=== PATIENT | female | born 1970 | race Caucasian/White ===

== ENCOUNTER 2019-07-08 00:10 | Emergency (ER) | payer BC, OTHER ==
[2019-07-08] MEDS ORDERED: Bacitracin Oint 1 GM U/D Packet TOP ONE (00:18)
[2019-07-08] MEDS ORDERED: Lidocaine 1% with EPINEPHrine 1:100,000 20 ML MDV INJECT ONE (00:18)
--- NOTE | 2019-07-08 00:56 | EDM.PDOC ---
ED HPI GENERAL MEDICAL PROBLEM - General Stated Complaint: SLIPPED AND HIT HEAD Time Seen by Provider: 07/08/19 00:17 Source of Information: Reports: Patient History Limitations: Reports: No Limitations - History of Present Illness INITIAL COMMENTS - FREE TEXT/NARRATIVE: ED ambulatory, states slipped fell hit head on bench, laceration to forehead. Tetnus current. no loss of consciousness. No blood thinners, , No aspirin intake. No dizziness or balance problems. 3cm gaping laceration to mid forehead. Deneis neck or back pain, No other injury - Related Data Allergies Allergy/AdvReac Type Severity Reaction Status Date / Time No Known Allergies Allergy Verified 07/08/19 00:27 Home Meds: Home Meds Ascorbic Acid [Vitamin C] 1,000 mg PO DAILY 07/08/19 [History] Iron 1 tab PO DAILY 07/08/19 [History] ED ROS GENERAL - Review of Systems Review Of Systems: Comprehensive ROS is negative, except as noted in HPI. ED EXAM, GENERAL - Physical Exam Exam: See Below Exam Limited By: No Limitations General Appearance: Alert, Mild Distress Eye Exam: Bilateral Eye: EOMI, PERRL (4) Ear Exam: Bilateral Ear: TM normal Nose: Normal Inspection Throat/Mouth: Normal Inspection, Normal Oropharynx Head: Normocephalic, Other (forehead laceration) Neck: Normal Inspection, Full Range of Motion. No: Tender Lateral, Tender Midline Respiratory/Chest: No Respiratory Distress, Lungs Clear, Normal Breath Sounds Cardiovascular: Normal Peripheral Pulses, Regular Rate, Rhythm Back Exam: Normal Inspection, Full Range of Motion Extremities: Normal Inspection, Normal Range of Motion Neurological: Alert, Oriented, CN II-XII Intact, Normal Cognition, Other (GCS 15 ) Psychiatric: Normal Affect, Normal Mood Skin Exam: Warm, Wound/Incision ( 3cm horizontal laceration mid forehead, mild seperation ) ED GENERAL MEDICAL PROCEDURES - Laceration/Wound Repair Middle Forehead Lac/wound length in cm: 3 Distal NVT: Neuro & Vascular Intact Local Anesthesia - Lidocaine (Xylocaine): 1% with EPI Skin Prep: Chlorhexidine (Hibiciens), Saline Suture Size: 5-0 # of Sutures: 5 Suture Type: Nylon, Interrupted Suture Size: 4-0 # of Sutures: 1 Repaired with: Vicryl Drain Placement: No Sterile Dressing Applied: Nurse Tetanus Status Addressed: Yes Complications: No Departure - Departure Time of Disposition: 00:56 Disposition: Home, Self-Care 01 Condition: Good Clinical Impression: Laceration of forehead without complication Qualifiers: Encounter type: initial encounter Qualified Code(s): S01.81XA - Laceration without foreign body of other part of head, initial encounter - Discharge Information *PRESCRIPTION DRUG MONITORING PROGRAM REVIEWED*: No *COPY OF PRESCRIPTION DRUG MONITORING REPORT IN PATIENT RAAD: No Instructions: Stitches, Nash, or Adhesive Wound Closure, Head Injury, Adult Additional Instructions: Keep wound clean and dry ice pack tonight to decrease swelling head injury instruction, follow up urgently, repeated vomiting, confusion, speech or balance difficulty tylenol 650mg every 4 hours as needed for discomfort may shower later today sutures out in clinic 10-14 days, recheck wound sooner if redness swelling or drainage.
== END 2019-07-08 01:03 | disposition home or self-care (01) ==
LOC: DL.ED 00:10
DX: S01.81XA Laceration without foreign body of other part of head, initial encounter (principal); W01.0XXA Fall on same level from slipping, tripping and stumbling without subsequent striking against object, initial encounter
CPT/HCPCS: 12013; 99282-25